=== PATIENT | male | born 1990 | race Caucasian/White ===

== ENCOUNTER 2017-10-29 10:48 | Emergency (ER) | payer SELFPAY ==
[~2017-10-29] VITALS: Ht 185.4 cm; Wt 68.0 kg
[2017-10-29 11:05] VITALS: BP_SYST 137
--- NOTE | 2017-10-29 12:30 | NUR ---
Patient to Bed H1, gown on for exam, placed on pvc monitor, bp cuff and pulse ox. Patient, awake, alert and oriented x 4, BIB self from home for pain to right middle finger since last saturday. Upon assessement, patient states "I was working on a house and then pieces of fiberglass got into my finger." Pt presents swelling and tenderness to touch to right middle finger, no drainage noted. Patient denies chest pain, shortness of breath, chills, and fever, none noted. No other complaints/injuries per patient, none noted.
--- NOTE | 2017-10-29 12:35 | NUR ---
Dr. Corral at bedside examining patient.
[2017-10-29] MEDS ORDERED: LIDOCAINE 1% 10 MG/ML, 20 ML MDV INJ ONE (13:00)
--- NOTE | 2017-10-29 13:00 | NUR ---
Pt moved to bed 6. ER at bedside examining patient.
--- NOTE | 2017-10-29 13:25 | NUR ---
at bedside performing wound care. Pt tolerated well, no signs of distress noted.
[2017-10-29 13:55] VITALS: BP_SYST 128
--- NOTE | 2017-10-29 13:55 | NUR ---
Patient given written and verbal discharge instructions and verbalizes understanding. ER MD discussed with patient the results and treatment provided. Patient in stable condition. ID arm band removed. No Rx given. Patient educated on pain management and to follow up with PMD. Pain Scale 2/10. Opportunity for questions provided and answered.
== END 2017-10-29 13:55 | disposition home or self-care (01) ==
LOC: SED 10:48
DX: L03.011 Cellulitis of right finger (principal)
CPT/HCPCS: 10060; 73130; 99284; J2001